=== PATIENT | female | born 1995 | race Caucasian/White ===

== ENCOUNTER 2025-05-25 19:02 | Emergency (ER) | payer OTHER, SELFPAY ==
--- NOTE | ~2025-05-25 | XR_ITS ---
XR foot LT min 3V Ordering provider: Finn Rae APRN History: . lateral dorsal foot pain/swelling after fall . Comparison: None. FINDINGS: BONES: No acute fracture or dislocation. JOINT SPACES: Narrowing of the proximal and distal interphalangeal joints. No tarsal coalition. SOFT TISSUES: Normal. IMPRESSION: No acute osseous abnormality left foot. Reviewed, dictated and finalized at location A.
--- NOTE | 2025-05-25 19:04 | ED.LOWEXIN ---
HPI - Extremity Injury (Lower) General Chief Complaint: Extremity Injury, Lower Stated Complaint: Fall / LT Foot Pain Time Seen by Provider: 05/25/25 19:03 Source: patient Mode of arrival: ambulatory Limitations: no limitations History of Present Illness HPI Narrative: Katerin is a 30 year old female patient presenting to the clinic today with c/o left lateral dorsal foot pain after a fall. She reports she was walking outside of a local establishment after eating lunch and tripped on some rocks. Has left lateral dorsal foot pain. Pain with bearing weight. Rested, iced, and elevated her foot. She has not taken any Tylenol or ibuprofen. Denies any other injury. Denies hitting her head or any loss of consciousness. No neck pain. Related Data Home Medications ?Medication ?Instructions ?Recorded ?Confirmed ?Last Taken ?Type sertraline 25 mg tablet mg 05/25/25 Unknown History Allergies Allergy/AdvReac Type Severity Reaction Status Date / Time No Known Allergies Allergy Mild Unverified 02/18/09 21:24 Review of Systems Review of Systems: Pertinent positives per HPI. Patient denies any fever, chills, rash, headache, visual changes, dizziness, cough, runny nose, sore throat, shortness of breath, chest pain, palpitations, nausea, vomiting, diarrhea, constipation, abdominal pain, or any urinary issues. PMFSH Social History Social History Smoking status: Never smoker Alcohol intake: never Comments At the time of my signature, I reviewed and agree with the nursing past medical, surgical, social, and family history. There is no relevant family history pertinent to the patient complaint. Exam Narrative: General: Well-developed, well nourished, in no apparent distress Head: Normocephalic, atraumatic. Cardio: Regular rate and rhythm, s1 and s2 normal, no murmur appreciated. Resp: Clear to auscultation bilaterally, no rhonchi, rales, wheezing or rubs. Musculoskeletal: No deformity, tender to palpation over the proximal base 5th metatarsal, pain with dorsal flexion, plantar flexion, valgus and varus maneuvers, limited range of motion due to pain, muscle strength strong and equal, peripheral pulse strong, no edema, no cyanosis, normal gait and station Course Course Emergency Course: Portions of this record may have been created with voice recognition software. Level of Care: Express Care Visit Vital Signs Vital signs: Vital Signs Temperature 36.8 C 05/25/25 19:18 Pulse Rate 108 H 05/25/25 19:18 Respiratory Rate 20 05/25/25 19:18 Blood Pressure 125/85 05/25/25 19:18 Pulse Oximetry 99 05/25/25 19:18 Temperature 36.8 C 05/25/25 19:18 Pulse Rate 108 H 05/25/25 19:18 Respiratory Rate 20 05/25/25 19:18 Blood Pressure 125/85 05/25/25 19:18 Pulse Oximetry 99 05/25/25 19:18 Vital signs reviewed MDM - Extremity Injury (Lower) MDM Narrative Medical decision making narrative: At the time of visit patient is resting comfortably on the exam table. Patient appears to be nontoxic. Diagnostics: X-ray of the left foot was performed and was negative for any sign of fracture or malalignment Plan: I suspect patient has left foot sprain. Aroldo wrap, ice pack, and crutches were given. Supportive measures were discussed with the patient and they voiced understanding discharge instructions and agrees to treatment plan. Return precautions reviewed Differential Diagnosis Differential diagnosis: Likely ankle sprain and strain, fracture of toe, ankle fracture and other (Foot fracture, foot sprain, soft tissue injury) Imaging Data Radiologist's impression: ITS Impressions Foot X-Ray 05/25/25 19:50 IMPRESSION: No acute osseous abnormality left foot. Discharge Plan Discharge Clinical Impression: Foot sprain Qualifiers: Encounter type: initial encounter Laterality: left Qualified Code(s): S93.602A - Unspecified sprain of left foot, initial encounter Patient Disposition: Home Condition: Stable Instructions: Antibiotic Form, Foot Sprain (ED) Additional Instructions: X-rays negative for any sign of fracture or malalignment of the left foot Rest, ice, elevate, and wear aroldo wrap as directed Use crutches as needed Tylenol/motrin for pain as discussed. Gradually bear weight No running or sports until healed. Follow up with your PCP if symptoms persist more than 1 week. Patient Language: [place] Islander Prescriptions: No Action sertraline 25 mg tablet Follow-up/Referrals: Haven,GUILLERMO Jerez [Primary Care Provider] - Time of Disposition: 19:59 Quality NIHSS Nursing Documentation ED NIHSS nursing documentation: reviewed/agree
--- OUTSIDE RECORDS SUMMARY | 2025-05-25 19:04 | XMS_ITS | Referral Summary ---
Author Organization [facility] PATIENT AND [employer] Address [address] [place] [address] Care Team Providers Care Crane Ladle Person Name Role Phone Blanca Gonsalez MD Unavailable [phone] Florence Adhikari MD Unavailable [phone] Cynthia Orourke NP Primary Care Provider [phone] Allergies No known active allergies Medications vit 62-ovgx-aqksp-dha 27mg iron- 800 mcg-250 mg capsule Take by mouth Active metoclopramide (Reglan) 10 mg tablet Take 1 tablet (10 mg total) by mouth 3 (three) times a day as needed (headache) Take one tablet every 8 hours 40 tablet 1 07/13/20 24 Active diphenhydrAMINE (BENADRYL) 25 mg capsule Take 1 tablet/capsule (25 mg total) by mouth every 6 (six) hours as needed for itching 40 capsule 1 07/13/20 24 Active ferric maltol (Accrufer) 30 mg capsuleIndication s:Anemia, unspecified type Take 1 capsule by mouth 2 (two) times a day 60 capsule 3 09/01/20 24 Active docusate sodium (COLACE) 100 mg capsuleIndication s:constipation,St ool Softener Take 1 capsule (100 mg total) by mouth 2 (two) times a day as needed for constipation 60 capsule 2 11/20/20 24 Active ibuprofen (ADVIL,MOTRIN) 600 mg tabletIndications :Cramps Take 1 tablet (600 mg total) by mouth every 6 (six) hours as needed for pain 60 tablet 11/20/20 24 Active tranexamic acid (LYSTEDA) 650 mg tablet Take 2 tablets (1,300 mg total) by mouth 3 (three) times a day Active Slynd tablet tabletIndications : Contraception Take 1 each (4 mg total) by mouth daily 84 tablet 4 12/30/19 25 Active sertraline (ZOLOFT) 25 mg tablet Take 1 tablet (25 mg total) by mouth daily 90 tablet 3 01/13/20 25 Active Active Problems Problem Noted Date Diagnosed Date hemorrhage, delayed (> 24 hrs) 2024 40 weeks gestation of 11/19/2024 Term 11/19/2024 Anemia 09/01/2024 Overview (09/01/2024): Hgb 10.5 AccruFer BID Supervision of high-risk , unspecified trimester 04/13/2024 Overview (11/17/2024): NOTES: Partner name: 1st Trimester: [x] Dating Criteria: EDC 11/19/2024 (d/8) [x] Labs: Lab Results Component Value Date ABORH O Positive 02/14/2023 [x] NIPT: low risk, XX [x] Carrier screening: invitae genetic carrier screening with first - no matches between both partners [] ASA at 12 weeks: 2nd -3rd Trimester: [x] Anatomy ultrasound: no anomalies on scan, AGA (40%ile), CL 4.36cm [x] Placenta Location: posterior, no previa [] echo (if monochorionic, IVF, hx CHD) [x] 1h GTT: 85 [x] CBC: 10.5/31.2, Plt 235 [x] Antibody screen: neg [x] Flu Shot : 08/31/2024 [x] Tdap (28-32wks): 08/31/2024 [] Rhogam (28-32wks if Rh neg): [x] 32 wk ultrasound: 09/29/2024, 32w5d, EFW 1917gm (25%ile), OUSMANE 9.7cm, vertex [x] RSV vaccine (32-36wks): 10/12/2024 [x] GBS (36w or planned delivery sooner): Negative Counseling: [] Route of Delivery: [] Timing of Delivery: [] Post risks: [] Compressor House Operator [] Circumcision [] Method of contraception (if desires, tubal benefits checked) History of hemorrhage 04/13/2024 Overview (04/13/2024): PP hemorrhage requiring HUONG balloon and blood transfusion Annual physical exam 02/07/2024 Anxiety 02/07/2024 Assessment & Plan (02/07/2024 1:13 PM CDT): Psychological condition is newly identified. Medication changes per orders. Discussed trialing BuSpar 7.5 mg b.i.d. p.r.n. discussed how medication works. Psychological condition will be reassessed 1 year and as needed Resolved Problems Problem Noted Date Diagnosed Date Resolved Date 39 weeks gestation of 02/10/2023 02/04/2024 Immunizations Immunization Administration Dates Next Due Influenza, Trivalent, Preser vative Free, Intramuscular 08/31/2024 Influenza, Unspecified 02/04/2024(Deferr ed: Patient Refused),11/23/2022(Deferred: Patient Refused),09/23/2022 Tdap 08/31/2024 Social History Tobacco Use Types Packs/Day Years Used Date Smoking Tobacco: Never Smokeless Tobacco: Never Tobacco Cessation:Counseling Given: No Social Connection and Isolat ion Panel [NHANES] Answer Date Recorded In a typical week, how many times do you talk on the phone with family, friends, or neighbors? More than three times a week 02/10/2023 How often do you get togethe r with friends or relatives? More than three times a week 02/10/2023 How often do you attend chur ch or gnosticist services? Never 02/10/2023 Do you belong to any clubs o r organizations such as holiness groups, unions, fraternal or athletic groups, or school groups? No 02/10/2023 How often do you attend meet ings of the clubs or organizations you belong to? Patient declined 02/10/2023 Are you , , di vorced, , never , or living with a partner? 02/10/2023 AUDIT-C Answer Date Recorded Q1: How often do you have a drink containing alc ohol? Never 02/10/2023 Average Number of Drinks Not on file 023 Frequency of Binge Drinking Not on file 01/22 Overall Financial Resource Strain (CARDIA) Answe r Date Recorded How hard is it for you to pa y for the very basics like food, housing, medical care, and heating? Not hard at all 11/19/2024 PHQ-2 Answer Date Recorded PHQ-2 Total Score (If total score is 3 or more points, staff should administer the PHQ-9) 0 02/04/2024 [facility] - Occupational Stress Questionnaire Answer Date Recorded Do you feel stress - tense, restless, nervous, or anxious, or unable to sleep at night because your mind is troubled all the time - these days? Not at all 02/10/2023 Exercise Vital Sign Answer Date Recorde d On average, how many days pe r week do you engage in moderate to strenuous exercise (like a brisk walk)? 3 days 02/10/2023 On average, how many minutes do you engage in exercise at this level? 30 min 02/10/2023 Hunger Vital Sign Answer Date Recorded Within the past 12 months, y ou worried that your food would run out before you got the money to buy more. Never true 11/19/20 24 Within the past 12 months, t he food you bought just didn't last and you didn't have money to get more. Never true 11/19/2024 PRAPARE - Transportation Answer Date Re corded In the past 12 months, has l ack of transportation kept you from medical appointments or from getting medications? No 10/24 In the past 12 months, has l ack of transportation kept you from meetings, work, or from getting things needed for daily living? No 11/19/2024 Housing Stability Vital Sign Answer Colton e Recorded In the last 12 months, was t here a time when you were not able to pay the mortgage or rent on time? No 02/10/2023 Number of Places Lived in the Last Year Not on f ile 02/10/2023 In the last 12 months, was t here a time when you did not have a steady place to sleep or slept in a fdc (including now)? No 02/10/2023 Bunch Depression Scale Answer Date Recorded Bunch Depression Scale Total 4 11/20/2024 The thought of harming myself has occurred to me . Never 11/20/2024 Housing Stability Vital Sign Answer Colton e Recorded In the last 12 months, was t here a time when you were not able to pay the mortgage or rent on time? No 11/19/2024 Number of Times Moved in the Last Year Not on fi le 11/19/2024 At any time in the past 12 m [facility], were you homeless or living in a fdc (including now)? No 11/19/2024 Personal Safety Answer Date Recorded Have you ever been in or are you currently in a harmful physical or emotional relationship or is someone making you feel afraid or unsafe? Patient unable to answer 11/28/2024 Comments No Sex and Gender Information Value Date Recorded Sex Assigned at Not on file Legal Sex Female 2:06 PM INK BLENDER Gender Identity Not on file Sexual Orientation Not on file Last Filed Vital Signs Vital Sign Reading Time Taken Comments Blood Pressure 132/84 12/30/2024 1:00 PM INK BLENDER Pulse 86 11/29/2024 6:10 PM INK BLENDER Temperature 36.9 C (98.4 F) 11/29/2024 6:10 PM INK BLENDER Respiratory Rate 16 11/29/2024 6:10 PM INK BLENDER Oxygen Saturation 98% 11/29/2024 6:10 PM INK BLENDER Inhaled Oxygen Concentration - - Weight 102.5 kg (226 lb) 12/30/2024 1:00 PM INK BLENDER Height 167.6 cm (5' 6) 11/28/2024 11:30 PM INK BLENDER Body Mass Index 36.48 11/28/2024 11:30 PM INK BLENDER Plan of Treatment Not on file Procedures Procedure Name Priority Date/Time Associated Diagnosis Comments HEPATITIS C AB W/REFL TO HCV RNA, QN, PCR (REFL) Routine 04/13/2024 1:50 PM CDT care, subsequent , first trimester from Last 3 Months or Most Recently Relevant to Health Maintenance Results * HEPATITIS C AB W/REFL TO HCV RNA, QN, PCR (REFL) (04/13/2024 1:50 PM CDT) Hep C Ab Non Reactive Non Reactive [facility] - 01 Blood 04/13/2024 1:50 PM CDT 04/13/2024 Narrative [facility] - 04/15/2024 7:11 AM CDT Performed at: 01 - [facility] [address] [id number] Truck Driving: Sheldon Richmond PhD, Phone: [phone] Blanca Gonsalez MD LAB BLOOD ORDERABLES Final Result [facility] - 01 from Last 3 Months or Most Recently Relevant to Health Maintenance Insurance [facility] OPEN ACCESS CIGNA OPEN ACCESS CIGNA OPEN ACCESS Advance Directives For more information, please contact: [phone] * Full Code (Latest Code Status on File) Date Activated Date Inactivated Comments 11/19/2024 4:11 PM 11/21/2024 7:29 PM * Full Code Date Activated Date Inactivated Comments 11/19/2024 1:08 AM 11/19/2024 4:11 PM Full CPR i n case of cardiopulmonary arrest * Full Code Date Activated Date Inactivated Comments 02/12/2023 4:49 PM 02/14/2023 9:09 PM * Full Code Date Activated Date Inactivated Comments 02/10/2023 5:05 PM 02/12/2023 4:49 PM Full CPR in case of cardiopulmonary arrest Care Teams Crane Ladle Person Relationship Specialty Start Date End Date Cynthia Orourke NP [address] [place] [address] PCP - General Family Medicine 02/04/24 Blanca Gonsalez MD [address] [facility] [address] [place] [address] Consulting Physician Obstetrics and Gynecology 02/13/23 Florence Adhikari MD [address] [place] [address] Medical Oncologist/Dowel Sticker Operator Hematology and Oncology 02/18/23
--- OUTSIDE RECORDS SUMMARY | 2025-05-25 19:04 | XMS_ITS | Clinical Summary ---
Author Organization [facility] PATIENT AND [employer] Address [address] [place] [address] Care Team Providers Care Barrel Raiser Name Role Phone Blanca Gonsalez MD Unavailable [phone] Florence Adhikari MD Unavailable [phone] Cynthia Orourke NP Primary Care Provider [phone] Allergies No known active allergies Medications vit 78-lnov-owels-dha 27mg iron- 800 mcg-250 mg capsule Take [...] Timing of Delivery: [] Post risks: [] Mine Safety Director [] Circumcision [] Method of contraception (if [...] ed: Patient Refused),11/23/2022(Deferred: Patient Refused),09/23/2022 Tdap 08/31/2024 Surgical History Surgery Date Site/Laterality Comments IA BREAST AUGMENTATION WITH IMPLANT COMBINED HYSTEROSCOPY DIAGNOSTIC / D&C WISDOM TOOTH EXTRACTION Bilateral TYMPANOSTOMY TUBE PLACEMENT NOSE SURGERY Medical History Medical History Date Comments Abnormal Pap smear of cervix Post depression Anxiety Migraine Acne Family History Medical History Relation Name Comments Heart attack Paternal Grandfather Relation Name Status Comments Paternal Grandfather Social History Tobacco Use Types Packs/Day Years [...] 02/10/2023 How often do you attend chur Bizz[place] or worship services? Never 02/10/2023 Do you belong to any clubs o r organizations such as latter-day groups, unions, fraternal or athletic groups, or [...] staff should administer the PHQ-9) 0 02/04/2024 [facility] - Occupational Stress Questionnaire Answer Date Recorded [...] place to sleep or slept in a prison (including now)? No 02/10/2023 [place] Depression Scale Answer Date Recorded [place] Depression Scale Total 4 11/20/2024 The thought [...] any time in the past 12 m onths, were you homeless or living in a prison (including now)? No 11/19/2024 Personal Safety Answer Date Recorded Have you ever been in or are you currently in a harmful physical or emotional relationship or is someone making you feel afraid or unsafe? Patient unable to answer 11/28/2024 Comments No Sex and Gender Information Value Date Recorded Sex Assigned at Not on file Legal Sex Female 2:06 PM AUTOMOTIVE LEASING SALES REPRESENTATIVE Gender Identity Not on file Sexual Orientation Not on file Obstetrics History Para Term AB IAB SAB Ectopic Multiple Livin g Live Births 2 2 2 0 2 2 Date Outcome GA Total Labor Labor/2nd/3rd Weight Sex Type Anes PTL Yamel A1 A5 Name Clin 2022 Term 39w 6d 4h 22m 4h 18m/0h 04m 3.225 kg (7 lb 1.8 oz) M Vag-Sp ont Epidur al N Livin g 7 9 JORGEIMA MICHELLE,TINY YKABlanca Hinojosa MD Complications:Post He morrhage Delivery Location:[facility] ([facility]) Comments:void at michelle deepak 2023 Term 40w 0d 0h 40m 0h 35m/0h 05m 2.835 kg (6 lb 4 oz) F Vagina l Epidur al N Livin g 8 9 Everl y C Blanca Anderson MD Complications:None Delivery [facility] ([facility]) Comments 06/18/2022 - Pap normal H/O Abnormal pap (01/2013 - [facility]) H/O HPV Last Filed Vital Signs Vital Sign Reading Time Taken Comments Blood Pressure 132/84 12/30/2024 1:00 PM AUTOMOTIVE LEASING SALES REPRESENTATIVE Pulse 86 11/29/2024 6:10 PM AUTOMOTIVE LEASING SALES REPRESENTATIVE Temperature 36.9 C (98.4 F) 11/29/2024 6:10 PM AUTOMOTIVE LEASING SALES REPRESENTATIVE Respiratory Rate 16 11/29/2024 6:10 PM AUTOMOTIVE LEASING SALES REPRESENTATIVE Oxygen Saturation 98% 11/29/2024 6:10 PM AUTOMOTIVE LEASING SALES REPRESENTATIVE Inhaled Oxygen Concentration - - Weight 102.5 kg (226 lb) 12/30/2024 1:00 PM AUTOMOTIVE LEASING SALES REPRESENTATIVE Height 167.6 cm (5' 6) 11/28/2024 11:30 PM AUTOMOTIVE LEASING SALES REPRESENTATIVE Body Mass Index 36.48 11/28/2024 11:30 PM AUTOMOTIVE LEASING SALES REPRESENTATIVE Plan of Treatment Health Maintenance Due Date Last Done Comments Cervical Cancer Screening 1993 Varicella Vaccines (1 of 2 - 13+ 2-dose series) 2006 Hepatitis B Screening 2011 Covid-19 Vaccine ( season) 2024 03/21/2021, 02/27/2021 Regular Well Visit/Exam 18-64 02/03/2025 02/04/2024 Depression Screening 11/20/2025 11/20/2024, 02/04/2024, 02/10/2023, Additional history exists DTaP/Tdap/Td Vaccine (2 - Td or Tdap) 08/31/2034 08/31/2024 Hepatitis C Screening Completed 04/13/2024 Influenza Vaccine Completed 08/31/2024, 09/23/2022 HPV Vaccines Aged Out No longer eligi ble based on patient's age to complete this topic Pneumococcal vaccine <65 Aged Out No longer eligible based on patient's age to complete this topic Procedures Procedure Name Priority Date/Time Associated Diagnosis [...] - 04/15/2024 7:11 AM CDT Performed at: - [facility] [id number] Telephone Supervisor: Sheldon Richmond PhD, Phone: [phone] us Blanca Gonsalez MD LAB BLOOD ORDERABLES Final Result [facility] - 01 from Last 3 Months or Most Recently Relevant to Health Maintenance Insurance [facility] [facility] H[facility] OPEN ACCESS CIGNA OPEN ACCESS CIGNA OPEN ACCESS Advance Directives For more information, please contact: [phone] * Full Code (Latest Code Status on [...] in case of cardiopulmonary arrest Care Teams Barrel Raiser Relationship Specialty Start Date End Date Cynthia Orourke NP [address] [place] [address] PCP - General Family Medicine 02/04/24 Blanca Gonsalez MD [address] [facility] [address] [place] [address] Consulting Physician Obstetrics and Gynecology 02/13/23 Florence Adhikari MD [address] [place] [address] Medical Oncologist/Expeller Worker Hematology and Oncology 02/18/23
[2025-05-25 19:18] VITALS: BP 125/85; PULSE 108; RESP 20; TEMP 36.8; O2SAT 99
== END 2025-05-25 20:02 | disposition home or self-care (01) ==
PROVIDERS: Emergency Provider Nurse Practitioner Family; PCP Nurse Practitioner Family
DX: S93.602A Unspecified sprain of left foot, initial encounter (principal); W22.8XXA Striking against or struck by other objects, initial encounter
CPT/HCPCS: 73630; 99213; G0463